=== PATIENT | male | born 2005 ===

== ENCOUNTER 2024-06-30 06:12 | Outpatient (REF) | payer OTHER, SELFPAY | END 2024-06-30 06:13 | disposition home or self-care (01) | LOC: HO.UMASIMG 06:12 | PROVIDERS: Visit Provider Physician Assistant Medical | DX: R59.0 Localized enlarged lymph nodes (principal) | CPT/HCPCS: 76536 ==

== ENCOUNTER → 2024-06-30 10:15 | Outpatient (BNV) | payer OTHER, SELFPAY | PROVIDERS: Visit Provider Radiology Diagnostic Radiology | DX: R59.0 Localized enlarged lymph nodes (principal) | CPT/HCPCS: 76536 ==